=== PATIENT | male | born 1985 | race Caucasian/White ===

== ENCOUNTER 2024-12-25 13:40 | Outpatient (CLI) | payer OTHER, SELFPAY | END 2024-12-25 13:41 | disposition home or self-care (01) | LOC: LKVREF 13:42 | PROVIDERS: PCP Family Medicine; Visit Provider Family Medicine | DX: Z01.818 Encounter for other preprocedural examination (principal) | CPT/HCPCS: 80048 ==

== ENCOUNTER 2025-07-13 14:31 | Outpatient (CLI) | payer OTHER, SELFPAY | END 2025-07-13 14:32 | disposition home or self-care (01) | LOC: LKVREF 14:32 | PROVIDERS: PCP Family Medicine; Visit Provider Family Medicine | DX: Z00.00 Encounter for general adult medical examination without abnormal findings (principal) | CPT/HCPCS: 80061 ==